=== PATIENT | female | born 2000 | race Caucasian/White ===

== ENCOUNTER 2021-04-09 02:18 | Emergency (ER) | payer OTHER ==
[2021-04-09 02:44] VITALS: BP 152/66; PULSE 109; TEMP 97.9; BMI 25.0
[2021-04-09] MEDS ORDERED: FAMOTIDINE 20 MG/50 ML IVPB 20 MG/50 ML MG IVPB ONE ×2 (02:57→03:19)
[2021-04-09] MEDS ORDERED: SODIUM CHLORIDE 0.9% 500 ML INFUS.BAG IV ONE (02:57)
[2021-04-09] MEDS ORDERED: MAG HYDROX/AL HYDROX/SIMETH 30 ML UNIT-DOSE CUP PO ONE (02:57)
[2021-04-09] MEDS ORDERED: ONDANSETRON 4 MG/2 ML VIAL IVPUSH ONE (02:57)
[2021-04-09] MEDS ORDERED: ONDANSETRON 4 MG/2 ML VIAL ONE (03:18)
[2021-04-09] MEDS ORDERED: MAG HYDROX/AL HYDROX/SIMETH 30 ML UNIT-DOSE CUP ONE (03:18)
[2021-04-09 04:00] LABS: BASO % 0.3 % (0-2.0); EOS % 0.4 % (0-4.5); HEMATOCRIT 36.2 % (32.4-45.2); HEMOGLOBIN 12.2 GM/dL (10.7-15.3); LYMPH % 20.1 % (8-40); MCH 27.9 pg (25.7-33.7); MCHC 33.7 g/dl (32.0-36.0); MEAN CELL VOLUME 82.9 fl (80-96); MEAN PLT VOLUME 7.4 fl (7.5-11.1); MONO % 7.5 % (3.8-10.2); NEUT % 71.7 % (42.8-82.8); PLATELET COUNT 331 10^3/uL (134-434); RBC 4.37 M/mm3 (3.60-5.2); RDW 14.2 % (11.6-15.6); WHITE BLOOD COUNT 10.6 K/mm3 (4.0-10.0)
[2021-04-09 04:18] LABS: CHLORIDE 108 mmol/L (98-107); SODIUM 138 mmol/L (136-145)
[2021-04-09 04:21] LABS: ALBUMIN 4.3 g/dl (3.4-5.0); ANION GAP 9 MMOL/L (8-16); CALCIUM 9.1 mg/dL (8.5-10.1); CO2 22 mmol/L (21-32); GLUCOSE,RANDOM 96 mg/dL (74-106); LIPASE 86 U/L (73-393)
[2021-04-09 04:22] LABS: BLOOD UREA NITROGEN 12.5 mg/dL (7-18)
[2021-04-09 04:24] LABS: CREATININE 0.7 mg/dL (0.55-1.3); SGOT/AST 37 U/L (15-37); SGPT/ALT 64 U/L (13-61)
[2021-04-09 04:26] LABS: BILIRUBIN,TOTAL 0.4 mg/dL (0.2-1)
[2021-04-09 04:27] LABS: ALK PHOS 77 U/L (45-117)
== END 2021-04-09 05:04 | disposition home or self-care (01) ==
LOC: JER 02:18
PROC: 3E033GC Introduction of Other Therapeutic Substance into Peripheral Vein, Percutaneous Approach (ICD-10-PCS; principal; 2021-04-09)
PROC: 3E033GC Introduction of Other Therapeutic Substance into Peripheral Vein, Percutaneous Approach (ICD-10-PCS; 2021-04-09)
DX: R10.13 Epigastric pain (principal); R11.2 Nausea with vomiting, unspecified
CPT/HCPCS: 36415; 80053; 82550; 82553; 83605; 83690; 84484; 84703; 85025; 93005; 93010; 99284-25

== ENCOUNTER 2021-12-16 04:23 | Day surgery (SDC) | payer OTHER ==
[2021-12-15 15:18] VITALS: BMI 31.1
[2021-12-16] MEDS ORDERED: KETOROLAC TROMETHAMINE 30 MG/1 ML VIAL ONE (13:49)
[2021-12-16] MEDS ORDERED: LIDOCAINE HCL/PF 2% SDV 5ML VIAL ONE (13:49)
[2021-12-16] MEDS ORDERED: ONDANSETRON 4 MG/2 ML VIAL ONE (13:49)
[2021-12-16] MEDS ORDERED: MIDAZOLAM HCL 2 MG/2 ML SINGLE DOSE VIAL ONE ×2 (13:50)
[2021-12-16] MEDS ORDERED: PROPOFOL 20 ML ONE ×2 (13:50→14:18)
[2021-12-16] MEDS ORDERED: oxyCODONE HCL 5 MG TABLET PO PRN (14:43)
[2021-12-16] MEDS ORDERED: ACETAMINOPHEN 325 MG TABLET (FP) PO PRN (14:43)
[2021-12-16] MEDS ORDERED: ONDANSETRON 4 MG/2 ML VIAL IVPUSH PRN (14:43)
[2021-12-16] MEDS ORDERED: LACTATED RINGERS SOLUTION 1,000 ML IV SCH (14:45)
[2021-12-16 17:40] VITALS: BP 110/70; PULSE 62; TEMP 98
== END 2021-12-16 17:43 | disposition home or self-care (01) ==
LOC: JASU-SURG 04:23
PROVIDERS: ATTEND Obstetrics & Gynecology
PROC: 10D17ZZ Extraction of Products of Conception, Retained, Via Natural or Artificial Opening (ICD-10-PCS; principal; 2021-12-16 13:30)
DX: O07.39 Failed attempted termination of pregnancy with other complications (principal)
CPT/HCPCS: 76998-TC; 86850; 86900; 86901; 88305-TC; 94760

== ENCOUNTER 2022-06-17 02:30 | Emergency (ER) | payer OTHER ==
[2022-06-17 02:36] VITALS: BP 137/86; TEMP 97.5; BMI 28.5
[2022-06-17] MEDS ORDERED: ACETAMINOPHEN 1000 MG/100 ML BAG IVPB ONE (03:02)
[2022-06-17] MEDS ORDERED: ACETAMINOPHEN INJECTION 100 ML IVPB ONE (03:17)
[2022-06-17] MEDS ORDERED: SODIUM CHLORIDE 0.9% 500 ML INFUS.BAG IV ONE (03:21)
[2022-06-17 03:45] LABS: BASO % 0.5 % (0-2.0); EOS % 1.5 % (0-4.5); HEMATOCRIT 35.6 % (32.4-45.2); HEMOGLOBIN 12.2 GM/dL (10.7-15.3); LYMPH % 37.4 % (8-40); MCH 28.8 pg (25.7-33.7); MCHC 34.2 g/dl (32.0-36.0); MEAN CELL VOLUME 84.2 fl (80-96); MONO % 7.1 % (3.8-10.2); NEUT % 53.5 % (42.8-82.8); PLATELET COUNT 316 10^3/uL (134-434); RBC 4.22 M/mm3 (3.60-5.2); RDW 14.1 % (11.6-15.6); WHITE BLOOD COUNT 6.7 K/mm3 (4.0-10.0)
[2022-06-17 04:06] LABS: CALCIUM 9.1 mg/dL (8.5-10.1)
[2022-06-17 04:07] LABS: ALBUMIN 3.6 g/dl (3.4-5.0); BLOOD UREA NITROGEN 10.5 mg/dL (7-18)
[2022-06-17 04:08] VITALS: PULSE 88; RESP 20
[2022-06-17 04:10] LABS: CREATININE 0.7 mg/dL (0.55-1.3)
[2022-06-17 04:11] LABS: BILIRUBIN,TOTAL 0.2 mg/dL (0.2-1); TOT PROT 7.3 g/dl (6.4-8.2)
== END 2022-06-17 05:37 | disposition home or self-care (01) ==
LOC: JER 02:30
PROC: 3E033NZ Introduction of Analgesics, Hypnotics, Sedatives into Peripheral Vein, Percutaneous Approach (ICD-10-PCS; principal; 2022-06-17)
DX: R00.2 Palpitations (principal)
CPT/HCPCS: 0241U-QW; 36415; 71275-TC; 80053; 83735; 84439; 84443; 84484; 84703; 85025; 93005; 93010; 99284-25; Q9967